=== PATIENT | female | born 1960 ===

== ENCOUNTER → 2021-07-25 | Outpatient (CLI) | payer OTHER ==
--- NOTE | 2021-07-26 09:32 | RAD ---
DXA BONE DENSITY AXIAL History: Postmenopausal Comparison: None. TECHNIQUE: Dual energy x-ray absorptiometry of the lumbar spine and right hip was performed. T-score of average bone mineral density based was calculated based on standard deviations above or below the expected young adult normal value. Diagnostic definitions were established by the [employer] z[employer]. FINDINGS: The average bone mineral density associated with L1-L4 is 1.077 g/cm^2, corresponding with a T-score of -0.9. The average total bone mineral density associated with right hip is 0.903 g/cm^2, corresponding with a T-score of -0.4. Refer to the worksheets for full detail. IMPRESSION: 1. Normal. Average bone mineral density yields a T-score of -1.0 or greater. Fracture risk is low. Electronically signed by: Obed Lr DO (07/26/2021 9:29 AM) [id number]
== END ==
LOC: DXRAD 14:06
PROVIDERS: ATTEND Family Medicine
DX: M06.9 Rheumatoid arthritis, unspecified (principal); Z78.0 Asymptomatic menopausal state
CPT/HCPCS: 77080